=== PATIENT | male | born 1990 | race Caucasian/White ===

== ENCOUNTER 2020-10-05 07:19 | Outpatient (REF) | payer OTHER, SELFPAY | END 2020-10-05 07:20 | disposition home or self-care (01) | LOC: HO.LAB 07:19 | PROVIDERS: Visit Provider Internal Medicine | DX: Z20.828 Contact with and (suspected) exposure to other viral communicable diseases (principal) | CPT/HCPCS: C9803; U0003 ==

== ENCOUNTER 2020-10-07 07:10 | Outpatient (REF) | payer OTHER, SELFPAY | END 2020-10-07 07:11 | disposition home or self-care (01) | LOC: HO.LAB 07:10 | PROVIDERS: Visit Provider Internal Medicine | DX: Z20.828 Contact with and (suspected) exposure to other viral communicable diseases (principal) | CPT/HCPCS: C9803; U0003 ==

== ENCOUNTER 2020-11-16 10:09 | Outpatient (REF) | payer OTHER, SELFPAY | END 2020-11-16 10:10 | disposition home or self-care (01) | LOC: HO.LAB 10:09 | PROVIDERS: Visit Provider Internal Medicine | DX: Z20.822 Contact with and (suspected) exposure to COVID-19 (principal) | CPT/HCPCS: 36415; C9803; U0003; U0005 ==

== ENCOUNTER 2024-09-26 11:18 | Outpatient (AMB) | payer OTHER, SELFPAY ==
--- NOTE | 2024-09-26 11:53 | MHC.PC.OV ---
Vital Signs 09/26/24 11:58 Height 6 ft 2 in Weight 198 lb BMI 25.4 BP 126/94 H Blood Pressure Location Lt brachial Position Sitting Pulse 72 Pulse Source Pulse Oximeter Pulse Oximetry (%) 97 Oxygen Delivery Method Room Air Intake Visit Reasons: establish care- requesting pe Eye Surgeon Required: No Accompanied by: Self / Same As Patient Allergies No Known Allergies Allergy (Verified 09/26/24 12:05) Medication List - Last Reconciled 09/26/24 by Santo Lacey PA-C No Known Home Meds Tobacco use date assessed: 09/26/24 Dental Screening Dental Screen Date: 09/26/24 Did you have a dental visit in the last 12 months?: Yes Did you have a dental problem in the last 6 months where you did not have access to dental care?: No Was dental information given to patient?: Patient has dentist HPI establish care- requesting pe HPI Details Patient is a 34-year-old male here today for new patient annual physical. Patient has not seen a PCP in over 10 years. Noted elevated blood pressure does systolic reading today in office. He does have a family history of hypertension. He will try to start monitoring his blood pressure at home. Tobacco dependency: He does admit to smoking a half pack of cigarettes per day and does understand he needs to quit. VAccine : UTD with flu and COVID ( at [facility]). Considering tetanus vaccine [facility] Family History (Updated 09/26/24 @ 12:08 by Santo Lacey PA-C) Maternal Grandfather Pancreatic cancer Social History (Updated 09/26/24 @ 12:09 by Santo Lacey PA-C) Housing: House Alcohol intake: current Alcohol intake frequency: a few times a week Alcohol type: beer Patient Tobacco Use Status: Current everyday Tobacco user Cigarette Packs Per Day: 10 e-Cigarette/Vaping Use: Never Used service: No Current occupational status: employed Current occupation: [employer] - [employer] Cognitive needs: No Hearing needs: No Vision needs: No Questionnaire PHQ-9 Over the last 2 weeks, how often have you been bothered by any of the following problems? 1. Little interest or pleasure in doing things: not at all 2. Feeling down, depressed, or hopeless: not at all 3. Trouble falling or staying asleep, or sleeping too much: not at all 4. Feeling tired or having little energy: not at all 5. Poor appetite or overeating: not at all 6. Feeling bad about yourself - or that you are a failure or have let yourself or your family down: not at all 7. Trouble concentrating on things, such as reading the newspaper or watching television: not at all 8. Moving or speaking so slowly that other people could have noticed. Or the opposite - being so fidgety or restless that you have been moving around a lot more than usual: not at all 9. Thoughts that you would be better off or of hurting yourself in some way: not at all Total score: 0 Depression Screening Interpretation: Negative Depression Screening Done: Yes 63007 - PHQ-9 Billing: Yes Source: Developed by Drs. Didier Tam, Geeta Carbajal, Junior Da Silva and colleagues, with an educational russel from [employer]. Thrive Questionnaire Date Thrive assessed: 09/26/24 I am a: Patient What is your living situation today?: I have a steady place to live Within the past 12 months, did the food you bought not last and you didn't have the money to get more?: Never true Within the past 12 months, did you worry whether your food would run out before you got money to buy more?: Never true Do you have trouble paying for medicines?: No Do you have trouble getting transportation to medical appointments?: No Do you have trouble paying your heating and electricity bill?: No Do you have trouble taking care of your child, family member or friend?: No Do you have trouble with day-to-day activities such as bathing, preparing meals, shopping, managing finances, etc.?: No Are you currently unemployed and looking for a job?: No Are you interested in more education?: Yes Please select the resources that you would like help with: None Currently or been in a relationship where the following occur: No concerns reported THRIVE Score: 0 AUDIT C Alcohol Use Questionnaire (AUDIT-C) 1. How often do you have a drink containing alcohol?: 2-4 times a month 2. How many drinks containing alcohol do you have on a typical day when you are drinking?: 5 or 6 3. How often do you have six or more drinks on one occasion?: Monthly Total Score: 6 KAVYA-7 AMB Questionnaire KAVYA-7 Date KAVYA - 7 assessed: 09/26/24 Feeling nervous, anxious, or on edge: 0 = Not at all Not being able to stop or control worryin = Not at all Worrying too much about different things: 0 = Not at all Trouble relaxin = Not at all Being so restless that it is hard to sit still: 0 = Not at all Becoming easily annoyed or irritable: 0 = Not at all Feeling afraid as if something awful might happen: 0 = Not at all Total KAVYA-7 score (0-4 normal; 5-9 mild; 10-14 moderate; 15-21 severe): 0 Source: Developed by Drs. Didier Tam, Geeta Carbajal, Junior Da Silva and colleagues, with an educational russel from [employer]. KAVYA-7 Assessment Billing KAVYA-7 Assessment Tool: KAVYA-7 Assessment 16551 Review of Systems Const Denies body aches, Denies chills, Denies excessive sweating, Denies fatigue, Denies fever(s) and Denies headache(s) Eyes Denies blurry vision ENT Denies dysphagia, Denies vertigo, Denies dizziness, Denies headache(s), Denies hearing loss and Denies tinnitus Card Denies chest pain, Denies chest pain with activity, Denies syncope, Denies irregular heart rhythm and Denies dyspnea Resp Denies chest congestion, Denies cough, Denies hemoptysis, Denies dyspnea and Denies wheezing GI Denies abdominal pain, Denies melena, Denies hematochezia, Denies coffee ground emesis, Denies dysphagia, Denies diarrhea, Denies nausea and Denies vomiting Denies difficulty urinating, Denies dysuria, Denies urinary frequency, Denies urinary hesitancy and Denies urinary urgency Musc Denies arthralgias, Denies limited range of motion, Denies muscle cramps and Denies muscle weakness Skin/Breast Denies rash and Denies skin ulcer Neuro Denies Abnormal speech present, Denies confusion, Denies vertigo, Denies dizziness, Denies syncope, Denies headache(s), Denies memory loss and Denies seizure-like activity Psych Denies anxiety, Denies confusion, Denies depression, Denies memory loss, Denies panic attacks and Denies paranoia Endo Denies excessive sweating, Denies fatigue, Denies flushing, Denies polydipsia and Denies polyuria Carlos/Lymph Denies easy bleeding and Denies easy bruising Aller/Immun Denies wheezing Physical exam (Primary Care) Vital Signs: Last Vital Signs Pulse 72 09/26/24 11:58 BP 126/94 H 09/26/24 11:58 Pulse Ox 97 09/26/24 11:58 Oxygen Delivery Method Room Air 09/26/24 11:58 BMI result Body Mass Index 25.4 Tobacco/Smoking Status: Tobacco use Status Tobacco use date assessed 09/26/24 09/26/24 12:03 Patient Tobacco Use Status Current everyday Tobacco 09/26/24 12:09 e-Cigarette/Vaping Use Never Used 09/26/24 12:09 Are you ready to quit: No Tobacco cessation counseling provided: Yes Items discussed: Nicotine replacement Relapse Prevention: discussed the importance of a supportive environment, discussed negative mood or depression after quitting, weight gain after smoking is common and discussed dietary, exercise and/or lifestyle changes Number of minutes spent counselin CPT code: 39739 - 4-10 Minutes PHQ-9: PHQ-9 Score PHQ-9: Total score 0 09/26/24 12:11 Depression Screening Interpretation: Negative Thrive Assessment: Date of Thrive Assessment Date Thrive assessed 09/26/24 09/26/24 12:01 Currently or been in a relationship where the following occur: No concerns reported Const General: cooperative, comfortable, no acute distress, alert and awake; No confusion Nutritional Appearance: well nourished Orientation/consciousness: oriented to person, oriented to place, patient oriented x3 and No confusion HENMT Head: Yes normocephalic Ears: external ears normal and TM's normal bilaterally General nose exam: Normal nasal mucous membranes and turbinates present Face and sinus: No sinus tenderness Mouth: Normal oral and palatal mucosa present and tongue normal Teeth and gingiva: dentition normal and gingiva normal Throat: Yes posterior oropharynx normal, Yes tonsils normal and Yes uvula midline Eyes Conjunctivae: conjunctivae normal Sclerae: sclerae normal Pupils: Equal, round and reactive pupils present EOM: EOMs intact bilaterally Direct Ophthalmoscopy: No no photophobia Neck Neck: Yes no lymphadenopathy, No tender and Yes no JVD Thyroid: Thyroid normal Carotids: no bruits Chest Chest palpation & inspection: no tenderness Resp Effort & Inspection: normal respiratory effort, no audible wheezes, not labored and no stridor Auscultation: no crackles, no rales, no rhonchi and no wheezes Cardio Jugular venous distension: no JVD Rate: regular rate, not bradycardic and not tachycardic Rhythm: regular rhythm Heart sounds: no murmurs and normal S1 and S2 Bruits: no carotid bruits Peripheral pulses: Peripheral pulses 2+ throughout GI Inspection: Yes normal to inspection, No abdominal wall ecchymosis and No visible herniation Palpation (GI): Soft to palpation, nontender, no guarding, not rigid and No hepatosplenomegaly present Auscultation: normoactive bowel sounds General: Yes no CVA tenderness Back/Spine/Pelvis Back: no CVA tenderness and No back tenderness Cervical Spine: cervical ROM normal Thoracic/Lumbar Spine: thoracic and lumbar spine normal to inspection, straight leg raise negative bilaterally, No thoraco-lumbar ROM limited and No lumbar spinal tenderness Skin General skin exam: no rashes or lesions noted and dry skin Lesions: no lesions Rashes: no rashes Wounds: no wounds Neuro General: oriented to person, oriented to place, patient oriented x3, CN's II-XI intact bilaterally and No confusion Cranial nerves: Yes Equal, round and reactive pupils present and Yes Normal accommodation reflex present Cognition (Neuro): normal cognition Speech: No Abnormal speech present Gait exam (Neuro): Normal gait present Motor exam (neuro): 5/5 motor strength present throughout Extrem Right upper extremity: full ROM; no cyanosis Left upper extremity: full ROM; no cyanosis Right lower extremity: no edema Left lower extremity: no edema Psych Appearance: grossly normal Mental Status: mental status grossly normal Speech and movement: Normal speech and movement present Affect: normal affect Attitude: cooperative Thought process: Normal thought process present Office Procedures Flu Questionnaire Does the patient have a severe egg allergy?: No Immunizations Fluarix Triv [id number] (PF) 45 mcg (15 mcg x 3)/0.5 mL IM syringe Performing Provider: Santo Lacey PA-C [facility] Documented (not given) by: RAQUEL Alcazar on 09/26/24 12:02 Reason Not Given: Received Previously Coding Level of Care Code New Pt Prev Care 18-39yr(48271 Diagnoses Annual physical exam Z00.00 Tobacco dependence F17.200 Screening for diabetes mellitus (DM) Z13.1 Elevated blood pressure reading R03.0 Additional Codes KAVYA-7 Assessment Billing - KAVYA-7 Assessment Tool: KAVYA-7 Assessment 35160 ([id number]) PHQ-9 - 56179 - PHQ-9 Billing: Yes ([id number]) Vital Signs *Quality* - CPT code: 47895 - 4-10 Minutes ([id number]) Assessment & Plan Assessment & Plan (1) Annual physical exam: Code(s): Z00.00 - Encounter for general adult medical examination without abnormal findings Category: Medical Plan: As per HPI (2) Tobacco dependence: Code(s): F17.200 - Nicotine dependence, unspecified, uncomplicated Category: Medical Plan: As per HPI. Edward does understand he needs to quit smoking though is not willing to do so at this time. (3) Screening for diabetes mellitus (DM): Code(s): Z13.1 - Encounter for screening for diabetes mellitus Category: Medical Plan: As per HPI (4) Elevated blood pressure reading: Code(s): R03.0 - Elevated blood-pressure reading, without diagnosis of hypertension Category: Medical Plan: Noted elevated blood pressure readings today in office. Advised to monitor blood pressure at home with goal blood pressure to be below 140/90 consistently. Of note does have a family history of high blood pressure Orders: Orders Influenza [id number] Immunization 09/26/24 Z23 - Encounter for immunization Comprehensive [address]. Panel Fast 09/26/24 Z13.1 - Encounter for screening for diabetes mellitus Complete Blood Count no Diff 09/26/24 Z13.1 - Encounter for screening for diabetes mellitus
[2024-09-26 11:58] VITALS: BP 126/94; PULSE 72; O2SAT 97; BMI 25.4
== END 2024-09-26 12:18 | disposition home or self-care (01) ==
PROVIDERS: PCP Physician Assistant; Visit Provider Physician Assistant
DX: Z23 Encounter for immunization (principal)

== ENCOUNTER → 2024-09-26 11:18 | Outpatient (BNVA) | payer OTHER, SELFPAY | PROVIDERS: PCP Physician Assistant; Visit Provider Physician Assistant | DX: Z00.00 Encounter for general adult medical examination without abnormal findings (principal); R03.0 Elevated blood-pressure reading, without diagnosis of hypertension; F17.210 Nicotine dependence, cigarettes, uncomplicated | CPT/HCPCS: 90471; 96127 ==

== ENCOUNTER 2024-10-18 07:17 | Outpatient (REF) | payer OTHER, SELFPAY ==
[2024-10-18 08:07] LABS: Hematocrit 41.3 % (42.0-52.0); Hemoglobin 13.9 g/dl (14.0-18.0); Mean Corpuscular HGB Conc 33.7 g/dl (31.0-36.0); Mean Corpuscular Hemoglobin 31.2 pg (27.0-33.0); Mean Corpuscular Volume 92.8 fL (80.0-98.0); Mean Platelet Volume 10.6 fL (9.4-12.4); Platelet Count 236 X10*3/uL (160-400); Red Blood Count 4.45 X10*6/uL (4.60-5.80); Red Cell Distribution Width 13.2 % (11.0-16.0); White Blood Count 9.5 X10*3/uL (4.8-10.8)
[2024-10-18 08:54] LABS: Alanine Aminotransferase 65 U/L (0-40); Albumin Level 4.5 g/dL (3.5-5.0); Alkaline Phosphatase 82 U/L (39-117); Anion Gap 13 (12-20); Aspartate Amino Transferase 26 U/L (5-37); Bilirubin Total 0.3 mg/dL (0.0-1.0); Blood Urea Nitrogen 12 mg/dL (9-16); Calcium 8.7 mg/dL (8.4-10.2); Carbon Dioxide 24 mmol/L (22-29); Chloride 109 mmol/L (96-108); Estimated Glomerular Filt Rate > 60; Glucose Fasting 98 mg/dL (60-99); Potassium 4.2 mmol/L (3.3-5.1); Sodium 142 mmol/L (135-145); Total Protein 6.9 g/dL (6.5-8.0)
== END 2024-10-18 07:18 | disposition home or self-care (01) ==
LOC: HO.LAB 07:17
PROVIDERS: PCP Physician Assistant; Visit Provider Physician Assistant
DX: Z13.1 Encounter for screening for diabetes mellitus (principal)
CPT/HCPCS: 36415; 80053; 85027

== ENCOUNTER 2025-01-08 10:09 | Outpatient (AMB) | payer OTHER, SELFPAY ==
[2025-01-08 10:34] VITALS: BP 130/84; PULSE 67; TEMP 36.3; O2SAT 99; BMI 25.4
--- NOTE | 2025-01-08 10:34 | MHC.PC.OV ---
Vital Signs 01/08/25 10:34 Height 6 ft 2 in Weight 198 lb BMI 25.4 BP 130/84 Blood Pressure Location Lt brachial Position Sitting Pulse 67 Pulse Source Pulse Oximeter Temp 97.3 F Temp Source Temporal Artery Scan Pulse Oximetry (%) 99 Oxygen Delivery Method Room Air Intake Visit Reasons: Knee Pain Brim Shaper Required: No Accompanied by: Self / Same As Patient Allergies No Known Allergies Allergy (Verified 01/08/25 10:44) Medication List - Last Reconciled 01/08/25 by Santo Lacey PA-C No Known Home Meds Tobacco use date assessed: 09/26/24 Dental Screening Dental Screen Date: 09/26/24 HPI Knee Pain HPI Details The patient is a 34-year-old male presenting with left knee pain. He reported the onset of pain during a race he participated in, which occurred on the Monday preceding the visit. He described the pain as localized to the medial aspect of the left knee, with accompanying soft tissue swelling. The patient attempted conservative management with icing, compression, and elevation, as well as the use of NSAIDs like Aleve and ibuprofen, but continued to experience discomfort and noticed moderate swelling. He observed pain upon stretching the knee and has been performing significant walking at work, which could have exacerbated the condition. [facility] Family History Maternal Grandfather Pancreatic cancer Social History Housing: House Alcohol intake: current Alcohol intake frequency: a few times a week Alcohol type: beer Patient Tobacco Use Status: Current everyday Tobacco user Cigarette Packs Per Day: 10 e-Cigarette/Vaping Use: Never Used service: No Current occupational status: employed Current occupation: [employer] - [employer] Cognitive needs: No Hearing needs: No Vision needs: No Questionnaire PHQ-9 Over the last 2 weeks, how often have you been bothered by any of the following problems? 1. Little interest or pleasure in doing things: not at all 2. Feeling down, depressed, or hopeless: not at all 3. Trouble falling or staying asleep, or sleeping too much: not at all 4. Feeling tired or having little energy: not at all 5. Poor appetite or overeating: not at all 6. Feeling bad about yourself - or that you are a failure or have let yourself or your family down: not at all 7. Trouble concentrating on things, such as reading the newspaper or watching television: not at all 8. Moving or speaking so slowly that other people could have noticed. Or the opposite - being so fidgety or restless that you have been moving around a lot more than usual: not at all 9. Thoughts that you would be better off or of hurting yourself in some way: not at all Total score: 0 Depression Screening Interpretation: Negative Depression Screening Done: Yes 41991 - PHQ-9 Billing: Yes Source: Developed by Drs. Didier Tam, Geeta Carbajal, Junior Da Silva and colleagues, with an educational russel from [employer]. Thrive Questionnaire Date Thrive assessed: 01/08/25 I am a: Patient What is your living situation today?: I have a steady place to live Within the past 12 months, did the food you bought not last and you didn't have the money to get more?: Never true Within the past 12 months, did you worry whether your food would run out before you got money to buy more?: Never true Do you have trouble paying for medicines?: No Do you have trouble getting transportation to medical appointments?: No Do you have trouble paying your heating and electricity bill?: No Do you have trouble taking care of your child, family member or friend?: No Do you have trouble with day-to-day activities such as bathing, preparing meals, shopping, managing finances, etc.?: No Are you currently unemployed and looking for a job?: No Are you interested in more education?: Yes Please select the resources that you would like help with: None Currently or been in a relationship where the following occur: No concerns reported THRIVE Score: 0 AUDIT C Alcohol Use Questionnaire (AUDIT-C) 1. How often do you have a drink containing alcohol?: 2-4 times a month 2. How many drinks containing alcohol do you have on a typical day when you are drinking?: 5 or 6 3. How often do you have six or more drinks on one occasion?: Monthly Total Score: 6 KAVYA-7 AMB Questionnaire KAVYA-7 Date KAVYA - 7 assessed: 01/08/25 Feeling nervous, anxious, or on edge: 0 = Not at all Not being able to stop or control worryin = Not at all Worrying too much about different things: 0 = Not at all Trouble relaxin = Not at all Being so restless that it is hard to sit still: 0 = Not at all Becoming easily annoyed or irritable: 0 = Not at all Feeling afraid as if something awful might happen: 0 = Not at all Total KAVYA-7 score (0-4 normal; 5-9 mild; 10-14 moderate; 15-21 severe): 0 Source: Developed by Drs. Didier Tam, Geeta Carbajal, Junior Da Silva and colleagues, with an educational russel from [employer]. KAVYA-7 Assessment Billing KAVYA-7 Assessment Tool: KAVYA-7 Assessment 40212 Review of Systems Const Denies headache(s) Eyes Denies loss of vision ENT Denies vertigo, Denies dizziness, Denies headache(s) and Denies sore throat Card Denies chest pain, Denies leg edema and Denies lightheadedness Resp Denies cough, Denies hemoptysis and Denies wheezing GI Denies abdominal pain, Denies melena, Denies constipation, Denies diarrhea and Denies vomiting Denies dysuria, Denies urinary frequency and Denies urinary urgency Musc Denies arthralgias, Denies joint swelling, Denies numbness and Denies tingling Neuro Denies Abnormal speech present, Denies behavioral changes, Denies vertigo, Denies dizziness, Denies headache(s), Denies loss of vision, Denies memory loss, Denies numbness and Denies tingling Psych Denies anxiety, Denies behavioral changes, Denies depression, Denies memory loss and Denies panic attacks Carlos/Lymph Denies easy bleeding and Denies easy bruising Aller/Immun Denies wheezing Physical exam (Primary Care) Vital Signs: Last Vital Signs Temp 97.3 F 01/08/25 10:34 Pulse 67 01/08/25 10:34 BP 130/84 01/08/25 10:34 Pulse Ox 99 01/08/25 10:34 Oxygen Delivery Method Room Air 01/08/25 10:34 BMI result Body Mass Index 25.4 Tobacco/Smoking Status: Tobacco use Status Tobacco use date assessed 09/26/24 01/08/25 10:35 Patient Tobacco Use Status Current everyday Tobacco 01/08/25 10:35 e-Cigarette/Vaping Use Never Used 01/08/25 10:35 PHQ-9: PHQ-9 Score PHQ-9: Total score 0 01/08/25 10:35 Depression Screening Interpretation: Negative Thrive Assessment: Date of Thrive Assessment Date Thrive assessed 01/08/25 01/08/25 10:35 Currently or been in a relationship where the following occur: No concerns reported Const General: healthy appearing, no acute distress, alert and awake Nutritional Appearance: well nourished Orientation/consciousness: oriented to person, oriented to place and oriented to time HENMT Ears: TM's normal bilaterally General nose exam: Normal nasal mucous membranes and turbinates present Eyes Conjunctivae: conjunctivae normal Sclerae: sclerae normal Pupils: Equal, round and reactive pupils present Neck Neck: Yes no lymphadenopathy and Yes no JVD Thyroid: Thyroid normal Carotids: no bruits Resp Effort & Inspection: normal respiratory effort and not tachypneic Auscultation: no crackles, no rales, no rhonchi and no wheezes Cardio Rate: regular rate Rhythm: regular rhythm Heart sounds: no murmurs and normal S1 and S2 GI Palpation (GI): Soft to palpation, nontender, no hepatomegaly and no splenomegaly Auscultation: normal bowel sounds Skin General skin exam: no rashes or lesions noted and dry skin Neuro General: oriented to person, oriented to place and oriented to time Cranial nerves: Yes Equal, round and reactive pupils present Speech: No Abnormal speech present Gait exam (Neuro): Normal gait present Motor exam (neuro): no tremor noted Extrem Other: LEFT KNEE: FULL RANGE OF MOTION, NO LIGAMENTOUS LAXITY, NOTABLE EDEMA TO THE MEDIAL SIDE OF LEFT KNEE COMPARED TO RIGHT KNEE. Right upper extremity: full ROM Left upper extremity: full ROM Right lower extremity: full ROM; no edema Left lower extremity: full ROM; no edema Psych Mental Status: mental status grossly normal Speech and movement: Normal speech and movement present Affect: normal affect Attitude: cooperative Thought process: Normal thought process present Coding Level of Care Code Est Pt Level 3 (41392) Diagnoses Sprain of medial collateral ligament of left knee, initial encounter S83.412A Encounter type: initial encounter Additional Codes KAVYA-7 Assessment Billing - KAVYA-7 Assessment Tool: KAVYA-7 Assessment 20874 ([id number]) PHQ-9 - 68474 - PHQ-9 Billing: Yes ([id number]) Assessment & Plan Assessment & Plan (1) MCL sprain of left knee: Code(s): S83.412A - Sprain of medial collateral ligament of left knee, initial encounter Category: Medical Qualifiers: Encounter type: initial encounter Qualified Code(s): S83.412A - Sprain of medial collateral ligament of left knee, initial encounter Plan: The patient is advised to undergo an x-ray to rule out bone-related injuries, while understanding it may not fully capture soft tissue damage. Conservative treatment involves rest, ice, compression, and elevation, ongoing NSAIDs for pain and inflammation, and recommending limited active use of the knee, including potential time off work. Physical therapy suggested if no symptom improvement occurs. Orders: Orders XR knee LT 3V Today S83.412A - Sprain of medial collateral ligament of left knee, initial encounter
== END 2025-01-08 10:50 | disposition home or self-care (01) ==
LOC: HO.HMCH 10:09
PROVIDERS: PCP Physician Assistant; Visit Provider Physician Assistant
DX: S83.412A Sprain of medial collateral ligament of left knee, initial encounter (principal)

== ENCOUNTER → 2025-01-08 10:09 | Outpatient (BNVA) | payer OTHER, SELFPAY | PROVIDERS: PCP Physician Assistant; Visit Provider Physician Assistant | DX: S83.412A Sprain of medial collateral ligament of left knee, initial encounter (principal); X58.XXXA Exposure to other specified factors, initial encounter; Y93.9 Activity, unspecified; Y92.9 Unspecified place or not applicable; Y99.9 Unspecified external cause status | CPT/HCPCS: 96127 ==

== ENCOUNTER 2025-01-09 08:05 | Outpatient (REF) | payer OTHER, SELFPAY ==
--- NOTE | ~2025-01-09 | XR_ITS ---
EXAMINATION: XR KNEE 4 OR MORE VIEWS LEFT HISTORY: S83.412A - Sprain of medial collateral ligament of left knee COMPARISON: There are no prior studies available for comparison. FINDINGS: Four views of the left knee are submitted. Osseous mineralization is normal. There is no fracture or dislocation. The joint spaces are preserved. The soft tissues are unremarkable. There is no joint effusion. XR/XR knee LT 4V IMPRESSION: Unremarkable examination of the left knee. Electronically signed by: Didier Lockett MD 01/09/2025 08:31 AM EDT
--- OUTSIDE RECORDS SUMMARY | 2025-01-09 08:14 | XMS_ITS | Encounter Summary ---
Author Organization [facility] Address [address] [place] [address] Phone Care Team Providers Care Distribution Lead Name Role Phone Didier Herrera Primary Care Provider [phone] Encounter Details Date Type Department Care Team (Late st Contact Info) Description 06/01/2017 Conversion Encounter [facility] [address] [place] [address] Social History Tobacco Use Types Packs/Day Years Used Date Smoking Tobacco: Never Assessed Sex and Gender Information Value Date Recorded Sex Assigned at Not on file Legal Sex Male 4:29 PM EDT Gender Identity Not on file Sexual Orientation Not on file documented as of this encounter Plan of Treatment Not on file documented as of this encounter Visit Diagnoses Not on filedocumented in this encounter Care Teams Distribution Lead Relationship Specialty Start Date End Date Didier Herrera [address] [place] [address] PCP - General 05/26/17 documented as of this encounter
--- OUTSIDE RECORDS SUMMARY | 2025-01-09 08:14 | XMS_ITS | Clinical Summary ---
Author Organization [facility] Address [address] [place] [address] Phone Care Team Providers Care Public Records Researcher Name Role Phone HerreraDidier cleaning Primary Care Provider Immunizations Immunization Administration Dates Next Due DTP 09/30/1993, 3,1992,06/12 DTaP 5 04/15/1997 H1N1 01/07/2010 Hep B, ped/adol 02/08/1994,1992,1992 Hib (PRP-T) 06/15/1993, 3,1992,06/12 Influenza, injectable, trivalent 09/24/2008 MMR 04/15/1997,06/15/1993 Meningococcal Conj (Menactra) MCV4P 05/25/2006 OPV 04/15/1997, 3,1992,06/12 Td (adult) (MBL), 2 Lf tetan us toxoid, PF, adsorbed 03/01/2004 Tdap 09/24/2008 Family History Relation Name Status Comments Father Alive Father: Alive a nd well Mother Alive Mother: Alive a nd well Other No family histo ry of Obesity, No family history of Developmental dislocation of hip, No family history of Deafness, No family history of Migraines, No family history of Diabetes mellitus, No family history of Strabismus/amblyopia, No family history of ADD/ADHD, No family history of Elevated cholesterol, No family history of Seizure disorder, No family history of Asthma, No family history of Sudden /[place] under age 55, No family history of Autism Sister 1 Alive Sister: Alive a nd well, Alive and well Sister 2 Alive Sister: Alive a nd well, Alive and well Social History Tobacco Use Types Packs/Day Years Used Date Smoking Tobacco: Never Assessed Sex and Gender Information Value Date Recorded Sex Assigned at Not on file Legal Sex Male 4:29 PM EDT Gender Identity Not on file Sexual Orientation Not on file Last Filed Vital Signs Vital Sign Reading Time Taken Comments Blood Pressure 120/72 01/07/2010 12:00 AM EDT Pulse - - Temperature - - Respiratory Rate - - Oxygen Saturation - - Inhaled Oxygen Concentration - - Weight 62.6 kg (138 lb) 01/07/2010 12:00 AM EDT Height 181.6 cm (5' 11.5 ) 01/07/2010 12:00 AM E DT Body Mass Index 18.98 01/07/2010 12:00 AM EDT Plan of Treatment Health Maintenance Due Date Last Done Comments Varicella Vaccines (1 of 2 - 13+ 2-dose series) 2005 DTaP,Tdap,and Td Vaccines (7 - Td or Tdap) 09/24/2018 09/24/2008, 03/01/2004, 04/15/1997, Additional history exists Influenza Vaccines (#1) 2024 09/24/2008 COVID-19 Vaccine ( season) 2024 HIB Vaccines Completed 06/15/1993, 11/16, 1992, Additional history exists Hepatitis B Vaccines Completed 02/08/1994, 1992, 1992 IPV Vaccines Completed 04/15/1997, 09/15, 1992, Additional history exists MMR Vaccines Completed 04/15/1997, 06/15/1993 Meningococcal Vaccine Aged Out 05/25/2006 No arturo aida eligible based on patient's age to complete this topic HPV Vaccines Aged Out No longer eligi ble based on patient's age to complete this topic Hepatitis A Vaccines Aged Out No long er eligible based on patient's age to complete this topic Men B Vaccine Aged Out No longer elig ible based on patient's age to complete this topic Pneumococcal Vaccine Aged Out No long er eligible based on patient's age to complete this topic Care Teams Public Records Researcher Relationship Specialty Start Date End Date Didier Herrera [address] [place] [address] PCP - General 05/26/17
--- OUTSIDE RECORDS SUMMARY | 2025-01-09 08:14 | XMS_ITS | Clinical Summary ---
Author Organization [facility] Address [address] [place] [address] Care Team Providers Care Executive Compensation Analyst Name Role Phone Unavailable Primary Care Provider Unavailabl e Social History Tobacco Use Types Packs/Day Years Used Date Smoking Tobacco: Never Assessed Intimate Partner Violence Answer Date R ecorded Fear of Current or Ex-Partner Not on file Emotionally Abused Not on file 06/08/2023 Physically Abused Not on file 06/08/2023 Sexually Abused Not on file 06/08/2023 Feel Safe at Home Not on file 06/08/2023 Sex and Gender Information Value Date Recorded Sex Assigned at Not on file Legal Sex Male 9:56 AM EST Gender Identity Not on file Sexual Orientation Not on file Plan of Treatment Health Maintenance Due Date Last Done Comments Hepatitis C Screening 1992 DTaP/Tdap/Td (1 - Tdap) 2010 Hep B (1 of 3 - 19+ 3-dose series) 2011 COVID-19 Vaccine ( - 2023-2 5 season) 2024 Influenza (#1) 2024 09/24/2008 Zoster (Shingrix) (1 of 2) 2042 HPV Vaccine Aged Out No longer eligi ble based on patient's age to complete this topic Hep A Aged Out No longer eligi ble based on patient's age to complete this topic Hib Aged Out No longer eligi ble based on patient's age to complete this topic Meningococcal ACWY Aged Out No longer eligible based on patient's age to complete this topic Pneumococcal Aged Out No longer eligi ble based on patient's age to complete this topic
== END 2025-01-09 08:06 | disposition home or self-care (01) ==
LOC: HO.XRAY 08:05
PROVIDERS: PCP Physician Assistant; Visit Provider Physician Assistant
DX: S83.412A Sprain of medial collateral ligament of left knee, initial encounter (principal)
CPT/HCPCS: 73564

== ENCOUNTER → 2025-01-09 08:09 | Outpatient (BNV) | payer OTHER, SELFPAY | PROVIDERS: PCP Physician Assistant; Visit Provider Radiology Diagnostic Radiology | DX: S83.412A Sprain of medial collateral ligament of left knee, initial encounter (principal) | CPT/HCPCS: 73564 ==

== ENCOUNTER 2025-01-28 07:43 | Outpatient (REF) | payer OTHER, SELFPAY ==
--- NOTE | ~2025-01-28 | MR_ITS ---
CLINICAL HISTORY: S83.207A - Unspecified tear of unspecified meniscus, current injury, lef... MR left knee without contrast Comparison: CR/SR - XR KNEE LT 4V - 01/09/25 08:23 EDT Findings: The medial and lateral menisci are intact. The anterior and posterior cruciate ligaments are intact. There is thickening and increased signal in the anterior cruciate ligament. The medial and lateral collateral ligaments are intact without periligamentous edema. No edema in the posterior lateral corner. The extensor mechanism is intact. No joint effusion. No Rosales's cyst. There is a low signal fracture line in the proximal tibial metaphysis at the medial/posterior aspect with a large amount of associated bone marrow edema. No hyaline cartilage disease in the patellofemoral, medial and lateral compartments. Impression: Normal menisci. No cruciate or collateral ligament tears. Fracture line in the proximal tibial metaphysis of the medial/posterior aspect with a large amount of associated edema could be stress fracture or secondary to prior trauma. This document has been electronically signed by: Autumn Mcclelland MD on 01/29/2025 15:59:35
--- OUTSIDE RECORDS SUMMARY | 2025-01-28 07:47 | XMS_ITS | Encounter Summary ---
Author Organization [facility] Address [address] [place] [address] Phone Care Team Providers Care Art Specialist Name Role Phone Didier Herrera Primary Care Provider [phone] Encounter Details Date Type Department Care Team (Late st Contact Info) Description 06/01/2017 Conversion Encounter [facility] [address] [place] [address] Social History Tobacco Use Types Packs/Day Years [...] on filedocumented in this encounter Care Teams Art Specialist Relationship Specialty Start Date End Date Didier Herrera [address] [place] [address] PCP - General 05/26/17 documented as of this encounter
--- OUTSIDE RECORDS SUMMARY | 2025-01-28 07:47 | XMS_ITS | Clinical Summary ---
Author Organization [facility] Address [address] [place] [address] Care Team Providers Care Steel Crane Operator Name Role Phone Unavailable Primary Care Provider [...]
--- OUTSIDE RECORDS SUMMARY | 2025-01-28 07:47 | XMS_ITS | Clinical Summary ---
Author Organization [facility] Address [address] [place] [address] Phone Care Team Providers Care Architectural Modeler Name Role Phone HerreraDidier cleaning Primary Care Provider [phone] Immunizations Immunization Administration Dates Next Due DTP [...] of Asthma, No family history of Sudden /[place] under age 55, No family history of [...] age to complete this topic Care Teams Architectural Modeler Relationship Specialty Start Date End Date Didier Herrera [address] [place] [address] PCP - General 05/26/17
== END 2025-01-28 07:44 | disposition home or self-care (01) ==
LOC: HO.MRI 07:43
PROVIDERS: PCP Physician Assistant; Visit Provider Physician Assistant
DX: S83.207A Unspecified tear of unspecified meniscus, current injury, left knee, initial encounter (principal)
CPT/HCPCS: 73721

== ENCOUNTER → 2025-01-28 07:51 | Outpatient (BNV) | payer OTHER, SELFPAY | PROVIDERS: PCP Physician Assistant; Visit Provider Radiology Diagnostic Radiology | DX: S83.207A Unspecified tear of unspecified meniscus, current injury, left knee, initial encounter (principal) | CPT/HCPCS: 73721 ==

== ENCOUNTER 2025-02-20 10:24 | Outpatient (AMB) | payer OTHER, SELFPAY ==
--- NOTE | 2025-02-20 10:26 | MHC.OFFVIS ---
Vital Signs 02/20/25 10:31 Height 6 ft 1 in Weight 198 lb BMI 26.1 Intake Visit Reasons: FC - left poss. ACL tear/tibial fx, DOI 01/04/25 Intake Note: Edward is a 34 year old male who presents today for evaluation of his left knee injury, DOI 01/04/25. Patient reports that he participated in a race when he felt a sharp pain on the medial aspect of the knee with swelling. The patient tried icing, compression, and elevation, as well as the use of NSAIDs like Aleve and ibuprofen, but continued to experience discomfort and noticed more swelling. He noticed his pain more with stretching the knee and has been performing significant walking at work, which could have made his pain worse. Today he is feel better with his brace on and without his brace his knee feels weak. Patient informed me that his pain is worse when he is going down stairs. IMPRESSION (x-ray): Unremarkable examination of the left knee. Impression (MRI): Normal menisci. No cruciate or collateral ligament tears. Fracture line in the proximal tibial metaphysis of the medial/posterior aspect with a large amount of associated edema could be stress fracture or secondary to prior trauma. Allergies No Known Allergies Allergy (Verified 02/20/25 10:30) HPI HPI FC - left poss. ACL tear/tibial fx, DOI 01/04/25: Details: Mr. Castañeda is a 34-year-old male who presents to the office today for evaluation of left knee injury that he sustained on 01/04/2025. He reports that he was running in a race over 6 miles when he began to have left knee pain. Over the following few days his knee pain increased. He saw his primary care provider which gave him 2 weeks out of work. 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 He continued to have pain and therefore an MRI was ordered. He does have a knee brace that he wears to help for support. This does help him some. His pain is at its peak when he is going down stairs. Since the date of injury his pain has subsided some. [facility] Family History Maternal Grandfather Pancreatic cancer Social History (Updated 02/20/25 @ 10:30 by Jamal De La Vega Housing: House Alcohol intake: current Alcohol intake frequency: a few times a week Alcohol type: beer Patient Tobacco Use Status: Current everyday Tobacco user Cigarettes Per Day: 10 e-Cigarette/Vaping Use: Never Used service: No Current occupational status: employed Current occupation: [employer] Cognitive needs: No Hearing needs: No Vision needs: No Review of Systems Const All systems reviewed & are unremarkable except as noted in HPI and below Physical Exam Vital Signs: BMI result Body Mass Index 26.1 Const General: cooperative, healthy appearing and no acute distress Resp Effort & Inspection: normal respiratory effort and able to speak in complete sentences Extrem Other: Left knee normal to inspection no ecchymosis, erythema or joint effusion. Slight tenderness to palpation over the proximal tibia. Able to perform straight leg raise with quad weakness. No tenderness to palpation medial or lateral joint lines. NVI. Assessment & Plan Assessment & Plan (1) Stress fracture, left tibia, initial encounter for fracture: Code(s): M84.362A - Stress fracture, left tibia, initial encounter for fracture Category: Medical Plan Mr. Castañeda is a 34-year-old male who presents to the office today for evaluation of left knee injury that he sustained on 01/04/2025. He reports that he was running in a race over 6 miles when he began to have left knee pain. Over the following few days his knee pain increased. He saw his primary care provider which gave him 2 weeks out of work. 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 He continued to have pain and therefore an MRI was ordered. He does have a knee brace that he wears to help for support. This does help him some. His pain is at its peak when he is going down stairs. Since the date of injury his pain has subsided some. While the office today, we discussed physical therapy. The patient is going to attend his 1st physical therapy appointment tomorrow. He should focus on quad strengthening. Would limit any high impact activities at this time. Gentle ambulation is recommended. He will use pain as his guide. If he continues to have an increase in pain he will contact our office and should immediately stop weight-bearing. I advised him against participating in any running or sports activities until he is pain-free. I gave him an out-of-work note until his follow up appointment in 4-6 weeks, sooner if needed. X-rays of the right knee which were obtained on 01/09/2025: XR/XR knee LT 4V IMPRESSION: Unremarkable examination of the left knee. MRI of the right knee obtained on 01/29/2025: Impression: Normal menisci. No cruciate or collateral ligament tears. Fracture line in the proximal tibial metaphysis of the medial/posterior aspect with a large amount of associated edema could be stress fracture or secondary to prior trauma. Coding Level of Care Code New Pt Level 4 (13301) Diagnoses Stress fracture, left tibia, initial encounter for fracture M84.362A
[2025-02-20 10:31] VITALS: BMI 26.1
--- OUTSIDE RECORDS SUMMARY | 2025-02-20 11:39 | XMS_ITS | Clinical Summary ---
Author Organization [facility] Address [address] [place] [address] Phone Care Team Providers Care Ceramic Engineering Professor Name Role Phone HerreraDidier cleaning Primary Care Provider [phone] Immunizations Immunization Administration Dates Next Due DTP [...] of Asthma, No family history of Sudden /[place] under age 55, No family history of [...] age to complete this topic Care Teams Ceramic Engineering Professor Relationship Specialty Start Date End Date Didier Herrera [address] [place] [address] PCP - General 05/26/17
--- OUTSIDE RECORDS SUMMARY | 2025-02-20 11:39 | XMS_ITS | Encounter Summary ---
Author Organization [facility] Address [address] [place] [address] Phone Care Team Providers Care Hostess Host Name Role Phone Didier Herrera Primary Care Provider [phone] Encounter Details Date Type Department Care Team (Late st Contact Info) Description 06/01/2017 Conversion Encounter [facility] [place] [address] [place] [address] Social History Tobacco Use Types Packs/Day Years [...] on filedocumented in this encounter Care Teams Hostess Host Relationship Specialty Start Date End Date Didier Herrera [address] [place] [address] PCP - General 05/26/17 documented as of this encounter
== END 2025-02-20 10:55 | disposition home or self-care (01) ==
LOC: HO.HOS 10:25
PROVIDERS: PCP Physician Assistant; Visit Provider Physician Assistant
DX: M84.362A Stress fracture, left tibia, initial encounter for fracture (principal)
CPT/HCPCS: 99203

== ENCOUNTER 2025-03-06 11:21 | Outpatient (AMB) | payer OTHER, SELFPAY ==
--- NOTE | 2025-03-06 11:42 | MHC.PC.OV ---
Vital Signs 03/06/25 11:43 Height 6 ft 1 in Weight 206 lb 4 oz BMI 27.2 BP 128/88 Blood Pressure Location Lt brachial Position Sitting Pulse 74 Pulse Source Pulse Oximeter Temp 97.3 F Temp Source Temporal Artery Scan Pulse Oximetry (%) 97 Oxygen Delivery Method Room Air Intake Visit Reasons: follow up 5 months Lamp Inspector Required: No Accompanied by: Self / Same As Patient Allergies No Known Allergies Allergy (Verified 03/06/25 12:06) Medication List - Last Reconciled 03/06/25 by Santo Lacey PA-C No Known Home Meds Tobacco use date assessed: 09/26/24 Dental Screening Dental Screen Date: 09/26/24 HPI follow up 5 months HPI Details Patient is a 35-year-old male here today for a follow-up visit Recently suffered a stress fracture of his left tibia and ACL tear secondary to running a 10K race. Has followed up with Orthopedics whom recommended physical therapy. Tobacco dependency: He does admit to smoking a half pack of cigarettes per day and does understand he needs to quit. Elevated liver enzymes-had an elevated ALT on most recent labs. was to repeat liver enzyme testing in promises to do so when near future. [facility] Family History Maternal Grandfather Pancreatic cancer Social History Housing: House Alcohol intake: current Alcohol intake frequency: a few times a week Alcohol type: beer Patient Tobacco Use Status: Current everyday Tobacco user Cigarettes Per Day: 10 e-Cigarette/Vaping Use: Never Used service: No Current occupational status: employed Current occupation: [employer] - [employer] Cognitive needs: No Hearing needs: No Vision needs: No Questionnaire PHQ-9 Over the last 2 weeks, how often have you been bothered by any of the following problems? 1. Little interest or pleasure in doing things: not at all 2. Feeling down, depressed, or hopeless: not at all 3. Trouble falling or staying asleep, or sleeping too much: not at all 4. Feeling tired or having little energy: not at all 5. Poor appetite or overeating: not at all 6. Feeling bad about yourself - or that you are a failure or have let yourself or your family down: not at all 7. Trouble concentrating on things, such as reading the newspaper or watching television: not at all 8. Moving or speaking so slowly that other people could have noticed. Or the opposite - being so fidgety or restless that you have been moving around a lot more than usual: not at all 9. Thoughts that you would be better off or of hurting yourself in some way: not at all Total score: 0 Depression Screening Interpretation: Negative Depression Screening Done: Yes 50692 - PHQ-9 Billing: Yes Source: Developed by Drs. Didier Tam, Geeta Carbajal, Junior Da Silva and colleagues, with an educational russel from [employer]. Thrive Questionnaire Date Thrive assessed: 01/08/25 I am a: Patient What is your living situation today?: I have a steady place to live Within the past 12 months, did the food you bought not last and you didn't have the money to get more?: Never true Within the past 12 months, did you worry whether your food would run out before you got money to buy more?: Never true Do you have trouble paying for medicines?: No Do you have trouble getting transportation to medical appointments?: No Do you have trouble paying your heating and electricity bill?: No Do you have trouble taking care of your child, family member or friend?: No Do you have trouble with day-to-day activities such as bathing, preparing meals, shopping, managing finances, etc.?: No Are you currently unemployed and looking for a job?: No Are you interested in more education?: Yes Please select the resources that you would like help with: None Currently or been in a relationship where the following occur: No concerns reported THRIVE Score: 0 AUDIT C Alcohol Use Questionnaire (AUDIT-C) 1. How often do you have a drink containing alcohol?: 2-4 times a month Total Score: 2 KAVYA-7 AMB Questionnaire KAVYA-7 Date KAVYA - 7 assessed: 01/08/25 Feeling nervous, anxious, or on edge: 1 = Several days Not being able to stop or control worryin = Not at all Worrying too much about different things: 0 = Not at all Trouble relaxin = Not at all Being so restless that it is hard to sit still: 0 = Not at all Becoming easily annoyed or irritable: 1 = Several days Feeling afraid as if something awful might happen: 0 = Not at all Total KAVYA-7 score (0-4 normal; 5-9 mild; 10-14 moderate; 15-21 severe): 2 Source: Developed by Drs. Didier Tam, Geeta Carbajal, Junior Da Silva and colleagues, with an educational russel from [employer]. Review of Systems Const Denies headache(s) Eyes Denies loss of vision ENT Denies vertigo, Denies dizziness, Denies headache(s) and Denies sore throat Card Denies chest pain, Denies leg edema and Denies lightheadedness Resp Denies cough, Denies hemoptysis and Denies wheezing GI Denies abdominal pain, Denies melena, Denies constipation, Denies diarrhea and Denies vomiting Denies dysuria, Denies urinary frequency and Denies urinary urgency Musc Denies arthralgias, Denies joint swelling, Denies numbness and Denies tingling Neuro Denies Abnormal speech present, Denies behavioral changes, Denies vertigo, Denies dizziness, Denies headache(s), Denies loss of vision, Denies memory loss, Denies numbness and Denies tingling Psych Denies anxiety, Denies behavioral changes, Denies depression, Denies memory loss and Denies panic attacks Carlos/Lymph Denies easy bleeding and Denies easy bruising Aller/Immun Denies wheezing Physical exam (Primary Care) Vital Signs: Last Vital Signs Temp 97.3 F 03/06/25 11:43 Pulse 74 03/06/25 11:43 BP 128/88 03/06/25 11:43 Pulse Ox 97 03/06/25 11:43 Oxygen Delivery Method Room Air 03/06/25 11:43 BMI result Body Mass Index 27.2 Tobacco/Smoking Status: Tobacco use Status Tobacco use date assessed 09/26/24 03/06/25 11:46 Patient Tobacco Use Status Current everyday Tobacco 03/06/25 11:46 e-Cigarette/Vaping Use Never Used 03/06/25 11:46 Are you ready to quit: No Tobacco cessation counseling provided: Yes Items discussed: Nicotine replacement Relapse Prevention: discussed the importance of a supportive environment, discussed negative mood or depression after quitting, weight gain after smoking is common and discussed dietary, exercise and/or lifestyle changes Number of minutes spent counselin CPT code: 26172 - 4-10 Minutes PHQ-9: PHQ-9 Score PHQ-9: Total score 0 03/06/25 11:46 Depression Screening Interpretation: Negative Thrive Assessment: Date of Thrive Assessment Date Thrive assessed 01/08/25 03/06/25 11:46 Currently or been in a relationship where the following occur: No concerns reported Const General: healthy appearing, no acute distress, alert and awake Nutritional Appearance: well nourished Orientation/consciousness: oriented to person, oriented to place and oriented to time HENMT Ears: TM's normal bilaterally General nose exam: Normal nasal mucous membranes and turbinates present Eyes Conjunctivae: conjunctivae normal Sclerae: sclerae normal Pupils: Equal, round and reactive pupils present Neck Neck: Yes no lymphadenopathy and Yes no JVD Thyroid: Thyroid normal Carotids: no bruits Resp Effort & Inspection: normal respiratory effort and not tachypneic Auscultation: no crackles, no rales, no rhonchi and no wheezes Cardio Rate: regular rate Rhythm: regular rhythm Heart sounds: no murmurs and normal S1 and S2 GI Palpation (GI): Soft to palpation, nontender, no hepatomegaly and no splenomegaly Auscultation: normal bowel sounds Skin General skin exam: no rashes or lesions noted and dry skin Neuro General: oriented to person, oriented to place and oriented to time Cranial nerves: Yes Equal, round and reactive pupils present Speech: No Abnormal speech present Gait exam (Neuro): Normal gait present Motor exam (neuro): no tremor noted Extrem Right upper extremity: full ROM Left upper extremity: full ROM Right lower extremity: full ROM; no edema Left lower extremity: full ROM; no edema Psych Mental Status: mental status grossly normal Speech and movement: Normal speech and movement present Affect: normal affect Attitude: cooperative Thought process: Normal thought process present Coding Level of Care Code Est Pt Level 4 (57218) Diagnoses Tobacco dependence F17.200 Stress fracture, left tibia, initial encounter for fracture M84.362A Elevated liver enzymes R74.8 Additional Codes Vital Signs *Quality* - CPT code: 98167 - 4-10 Minutes ([id number]) PHQ-9 - 76813 - PHQ-9 Billing: Yes ([id number]) Assessment & Plan Assessment & Plan (1) Tobacco dependence: Code(s): F17.200 - Nicotine dependence, unspecified, uncomplicated Category: Medical Plan: As per HPI. Edward does understand he needs to quit smoking though is not willing to do so at this time. (2) Stress fracture, left tibia, initial encounter for fracture: Code(s): M84.362A - Stress fracture, left tibia, initial encounter for fracture Category: Medical Plan: Patient followed up with Orthopedics for his tibial stress fracture and was recommended to do physical therapy. Has been taking it easy and has been off of work in his knee pain has been much better. (3) Elevated liver enzymes: Code(s): R74.8 - Abnormal levels of other serum enzymes Category: Medical Plan: Noted slightly elevated ALT on most recent labs. Will recheck his liver enzymes in near future. Advised on reducing alcohol and maintaining good eating habits. Will consider an abdominal ultrasound evaluate liver
[2025-03-06 11:43] VITALS: BP 128/88; PULSE 74; TEMP 36.3; O2SAT 97; BMI 27.2
--- OUTSIDE RECORDS SUMMARY | 2025-03-06 12:01 | XMS_ITS | Encounter Summary ---
Author Organization [facility] Address [address] [place] [address] Phone Care Team Providers Care Primary Care Nurse Name Role Phone Didier Herrera Primary Care Provider Encounter Details Date Type Department Care Team (Late st Contact Info) Description 06/01/2017 Conversion Encounter [facility] [place] [address] [place] [address] Social History Tobacco Use Types Packs/Day Years [...] on filedocumented in this encounter Care Teams Primary Care Nurse Relationship Specialty Start Date End Date Didier Herrera [address] [place] [address] PCP - General 05/26/17 documented as of this encounter
--- OUTSIDE RECORDS SUMMARY | 2025-03-06 12:01 | XMS_ITS | Clinical Summary ---
Author Organization [facility] Address [address] [place] [address] Phone Care Team Providers Care Electrode Cleaner Name Role Phone HerreraDidier cleaning Primary Care Provider [phone] Immunizations Immunization Administration Dates Next Due DTP [...] of Asthma, No family history of Sudden /IA under age 55, No family history of [...] age to complete this topic Care Teams Electrode Cleaner Relationship Specialty Start Date End Date Ddiier Herrera [address] [place] [address] PCP - General 05/26/17
== END 2025-03-06 12:15 | disposition home or self-care (01) ==
LOC: HO.HMCH 11:22
PROVIDERS: PCP Physician Assistant; Visit Provider Physician Assistant
DX: F17.200 Nicotine dependence, unspecified, uncomplicated (principal); M84.362A Stress fracture, left tibia, initial encounter for fracture; R74.8 Abnormal levels of other serum enzymes

== ENCOUNTER → 2025-03-06 11:21 | Outpatient (BNVA) | payer OTHER, SELFPAY | PROVIDERS: PCP Physician Assistant; Visit Provider Physician Assistant | DX: M84.362D Stress fracture, left tibia, subsequent encounter for fracture with routine healing (principal); S83.512D Sprain of anterior cruciate ligament of left knee, subsequent encounter; F17.210 Nicotine dependence, cigarettes, uncomplicated; X58.XXXD Exposure to other specified factors, subsequent encounter | CPT/HCPCS: 96127 ==

== ENCOUNTER 2025-03-28 07:59 | Outpatient (REF) | payer OTHER, SELFPAY ==
--- NOTE | ~2025-03-28 | XR_ITS ---
EXAMINATION: XR TIBIA AND FIBULA, LEFT CLINICAL INFORMATION: Stress fracture, left tibia. COMPARISON: None available. TECHNIQUE: AP and lateral views of the left tibia and fibula were obtained. FINDINGS: The bones and soft tissues are normal. No fracture. No evidence of stress fracture. No periostitis. No osseous lesions. XR/XR tibia fibula LT 2V IMPRESSION: Normal left tibia and fibula. Definite evidence of stress fracture. Electronically signed by: Alex Luna MD 03/28/2025 01:06 PM EDT
--- OUTSIDE RECORDS SUMMARY | 2025-03-29 08:01 | XMS_ITS | Encounter Summary ---
Author Organization [facility] Address [address] [place] [address] Phone Care Team Providers Care Rn Psych Name Role Phone Didier Herrera Primary Care Provider [phone] Encounter Details Date Type Department Care Team (Late st Contact Info) Description 06/01/2017 Conversion Encounter [place] [facility] [place] [address] [place] [address] Social History Tobacco Use Types Packs/Day Years [...] on filedocumented in this encounter Care Teams Rn Psych Relationship Specialty Start Date End Date Didier Herrera [address] [place] [address] PCP - General 05/26/17 documented as of this encounter
== END 2025-03-28 08:00 | disposition home or self-care (01) ==
LOC: HO.HOSX 07:59
PROVIDERS: Visit Provider Physician Assistant
DX: M84.362A Stress fracture, left tibia, initial encounter for fracture (principal)
CPT/HCPCS: 73590

== ENCOUNTER 2025-03-28 11:22 | Outpatient (AMB) | payer OTHER, SELFPAY ==
[2025-03-28 11:45] VITALS: BMI 27.2
--- NOTE | 2025-03-28 11:45 | MHC.OFFVIS ---
Vital Signs 03/28/25 11:45 Height 6 ft 1 in Weight 206 lb BMI 27.2 Intake Visit Reasons: OV- Left tibia stress fx DOI 01/04/25 Intake Note: Edward is a 34 year old male who presents today for evaluation of his Left tibia stress fx DOI 01/04/25. At his last visit he was recommended to not weight bear. Patient reports he has now been weight bearing for a few weeks with occasional discomfort. Patient states he takes Tylenol PRN with relief. Allergies No Known Allergies Allergy (Verified 03/28/25 11:45) HPI HPI OV- Left tibia stress fx DOI 01/04/25: Details: Mr. Luisa garcia is a 35-year-old male who presents to the office today for routine follow-up of left tibial stress fracture. Date of injury was 01/04/2025. Patient reports that overall he is doing very well. He has noticed a decrease in his pain. PFSH Family History Maternal Grandfather Pancreatic cancer Social History Housing: House Alcohol intake: current Alcohol intake frequency: a few times a week Alcohol type: beer Patient Tobacco Use Status: Current everyday Tobacco user Cigarettes Per Day: 10 e-Cigarette/Vaping Use: Never Used service: No Current occupational status: employed Current occupation: [employer] Cognitive needs: No Hearing needs: No Vision needs: No Review of Systems Const All systems reviewed & are unremarkable except as noted in HPI and below Physical Exam Vital Signs: BMI result Body Mass Index 27.2 Const General: cooperative, healthy appearing and no acute distress Resp Effort & Inspection: normal respiratory effort and able to speak in complete sentences Extrem Other: Left knee normal to inspection no ecchymosis, erythema or joint effusion. No tenderness to palpation over the proximal tibia. Able to perform straight leg raise. No tenderness to palpation medial or lateral joint lines. NVI. Assessment & Plan Assessment & Plan (1) Stress fracture of left tibia: Code(s): M84.362A - Stress fracture, left tibia, initial encounter for fracture Category: Medical Plan Mr. Luisa garcia is a 35-year-old male who presents to the office today for routine follow-up of left tibial stress fracture. Date of injury was 01/04/2025. Patient reports that overall he is doing very well. He has noticed a decrease in his pain. While in the office today, we discussed the nature of the injury taking roughly 3 months to improve. Patient is just about at this three-month momo. I have encouraged the patient to gently return back to normal activities using pain as his guide. Should he have any increase in pain he should contact our office immediately and limit his weight-bearing status. Patient understands and accepts. He will follow up PRN, sooner if needed. X-rays of the tibia and fibula which were obtained while in the office today were reviewed by me, Shante Torres PA-C and reveal normal left tibia and fibula. No evidence of stress fracture. Orders: Orders XR tibia fibula LT 2V 03/28/25 M84.362A - Stress fracture, left tibia, initial encounter for fracture Coding Level of Care Code Est Pt Level 3 (45222) Diagnoses Stress fracture of left tibia M84.362A
--- OUTSIDE RECORDS SUMMARY | 2025-03-28 12:21 | XMS_ITS | Clinical Summary ---
Author Organization [facility] Address [address] [place] [address] Care Team Providers Care Desktop Support Specialist Name Role Phone Unavailable Primary Care Provider [...] ( - 2023-2 5 season) 2024 Influenza (Season Ended) 2025 09/24/2008 Zoster (Shingrix) (1 of 2) 2042 [...]
== END 2025-03-28 12:02 | disposition home or self-care (01) ==
LOC: HO.HOS 11:23
PROVIDERS: PCP Physician Assistant; Visit Provider Physician Assistant
DX: M84.362A Stress fracture, left tibia, initial encounter for fracture (principal)
CPT/HCPCS: 99213

== ENCOUNTER → 2025-03-28 11:31 | Outpatient (BNV) | payer OTHER, SELFPAY | PROVIDERS: Visit Provider Radiology Diagnostic Radiology | DX: M79.662 Pain in left lower leg (principal) | CPT/HCPCS: 73590 ==

== ENCOUNTER 2025-03-28 12:48 | Outpatient (RCR) | payer OTHER, SELFPAY ==
--- NOTE | 2025-02-21 12:30 | MHC.PT.EP ---
[facility] [place] Office [place] Office [place] Office [address] [phone] F: [phone] F: [phone] F: [phone] F: [phone] Physical Therapy Plan of Care Date of Evaluation: 02/21/25 Date of Surgery: Diagnosis: MCL knee sprain (MD Dx) Fracture line in the proximal tibial metaphysis of the medial/posterior aspect (PT Dx) RS Assessment: Edward is a pleasant, motivated 34 y.o. male who is referred to PT by Santo Lacey PA-C with Dx of MCL knee sprain. PT Dx is fracture line in the proximal tibial metaphysis of the medial/posterior aspect. He has seen [facility] and was given no WB restrictions. Patient impairments include pain, weakness in L knee and hip, antalgic gait. 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 Patient will benefit from skilled PT to address aforementioned impairments and functional limitations to meet established goals. Frequency and Duration: The patient will be seen 2x/week for 4 weeks Short Term Goals: 2 weeks Patient demonstrates consistency and independence with HEP to self manage symptoms. Concrete Mixer Loader Truck Mounted Goals: 4 weeks Patient presents with increased L knee flexion strength 5/5 to be able to descend stairs reciprocally without sxs. 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 Treatment Plan: Modalities to reduce pain, spasms and effusion. Manual therapy to restore motion and function. Therapeutic exercise to improve strength and flexibility. Neuromuscular re-education for posture and balance. Therapeutic activities to return to functional activities of daily living. Electronically signed by: Kristy Perry, PT, DPT Please sign and return to therapist. Thank you for your referral.
--- NOTE | 2025-04-01 14:53 | MHC.PT.DC ---
[facility] [place] Office [place] Office [place] Office [address] [facility] [phone] F: [phone] F: [phone] F: [phone] F: [phone] Physical Therapy Discharge Report Diagnosis: LEFT MCL knee sprain (MD Dx) LEFT Fracture line in the proximal tibial metaphysis of the medial/posterior aspect (PT Dx) RS Date of Surgery: Date of Evaluation: 02/21/25 Date of Discharge: 04/01/25 Treatments to Date: 9 Cancellations to Date: No Shows to Date: Discharge Status: Achieved Goals Improved Function Independent with HEP Discharge Summary: Edward presents with full strength in L knee and ankle and full AROM. He has been able to tolerate increased balance and functional strengthening in WBing positions without it causing any symptoms. He is appropriate for discharge from PT at this time. Electronically signed by: Kristy Perry PT, DPT Please sign and return to therapist. Thank you for your referral.
== END 2025-04-01 14:54 | disposition home or self-care (01) ==
LOC: HO.PT 12:48
PROVIDERS: PCP Physician Assistant; Visit Provider Physician Assistant
DX: S83.412D Sprain of medial collateral ligament of left knee, subsequent encounter (principal)
CPT/HCPCS: 97110; 97112; 97140; 97161; 97530

== ENCOUNTER 2025-08-15 08:49 | Outpatient (REF) | payer OTHER, SELFPAY ==
--- OUTSIDE RECORDS SUMMARY | 2025-08-15 09:15 | XMS_ITS | Clinical Summary ---
Author Organization [facility] Address [address] [place] [address] Phone Care Team Providers Care Log Deckman Name Role Phone HerreraDidier cleaning Primary Care Provider [phone] Immunizations Immunization Administration Dates Next Due DTP [...] of Asthma, No family history of Sudden /VT under age 55, No family history of [...] 09/24/2018 09/24/2008, 03/01/2004, 04/15/1997, Additional history exists HPV Vaccines (1 - 3-dose SCDM series) 2019 Influenza Vaccines (#1) 2025 09/24/2008 COVID-19 Vaccine ( season) 2025 HIB Vaccines Completed 06/15/1993, 11/16, 1992, Additional [...] age to complete this topic Care Teams Log Deckman Relationship Specialty Start Date End Date Didier Herrera [address] [place] [address] PCP - General 05/26/17
--- OUTSIDE RECORDS SUMMARY | 2025-08-15 09:15 | XMS_ITS | Encounter Summary ---
Author Organization [facility] Address [address] [place] [address] Phone Care Team Providers Care Customer Sales Consultant Name Role Phone Didier Herrera Primary Care Provider [phone] Encounter Details Date Type Department Care Team (Late st Contact Info) Description 06/01/2017 Conversion Encounter [place] [facility] [place] [address] [place] [address] Social History Tobacco Use Types Packs/Day Years [...] on filedocumented in this encounter Care Teams Customer Sales Consultant Relationship Specialty Start Date End Date Didier Herrera [address] [place] [address] PCP - General 05/26/17 documented as of this encounter
--- OUTSIDE RECORDS SUMMARY | 2025-08-15 09:15 | XMS_ITS | Clinical Summary ---
Author Organization [facility] Address [address] [place] [address] Care Team Providers Care Physician Office Secretary Name Role Phone Unavailable Primary Care Provider [...] 3-dose series) 2011 COVID-19 Vaccine ( - 2024-2 6 season) 2025 Influenza (#1) 2025 09/24/2008 Zoster (Shingrix) (1 of 2) 2042 HPV Vaccine (No Doses Required) Completed Hep A Aged Out No longer eligi [...]
[2025-08-15 10:08] LABS: Alanine Aminotransferase 59 U/L (0-40); Albumin Level 4.8 g/dL (3.5-5.0); Alkaline Phosphatase 75 U/L (39-117); Aspartate Amino Transferase 24 U/L (5-37); Total Protein 6.8 g/dL (6.5-8.0)
== END 2025-08-15 08:50 | disposition home or self-care (01) ==
LOC: HO.LAB 08:49
PROVIDERS: PCP Physician Assistant; Visit Provider Physician Assistant
DX: R74.8 Abnormal levels of other serum enzymes (principal)
CPT/HCPCS: 36415; 80076

== ENCOUNTER 2025-09-08 10:10 | Outpatient (AMB) | payer OTHER, SELFPAY ==
--- NOTE | 2025-09-08 10:37 | A.OFFPC_ITS ---
Vital Signs 09/08/25 10:38 Height 6 ft 1 in Weight 194 lb 2 oz BMI 25.6 BP 130/70 Blood Pressure Location Lt brachial Position Sitting Pulse 91 Pulse Source Pulse Oximeter Temp 97.3 F Temp Source Temporal Artery Scan Pulse Oximetry (%) 97 Oxygen Delivery Method Room Air Intake Visit Reasons: Annual exam Intake Note: Patient is here today for a physical. Second Grade Teacher Required: No Senior Pharmacy Technician: Not Required per policy Accompanied by: Self / Same As Patient Allergies No Known Allergies Allergy (Verified 09/08/25 10:48) Medication List - Last Reconciled 09/08/25 by Santo Lacey PA-C No Known Home Meds Tobacco use date assessed: 09/08/25 Dental Screening Dental Screen Date: 09/08/25 Did you have a dental visit in the last 12 months?: Yes Did you have a dental problem in the last 6 months where you did not have access to dental care?: No Was dental information given to patient?: Patient has dentist HPI Annual exam HPI Details Patient is a 35-year-old male here today for an annual physical. Patient has a past medical history significant for tobacco dependency, elevated liver enzyme. Please to announce that he is expecting a new baby in 2025. Tobacco dependency: He does admit to smoking a half pack of cigarettes per day and does understand he needs to quit. He is interested now in try nicotine patches. Elevated liver enzymes-had an elevated ALT on most recent labs. His liver enzymes have gotten better since he has reduced his alcohol intake and has been trying to lose weight. Vaccines: Up-to-date with COVID vaccine, up-to-date with flu vaccine. Needs tdap PFSH Surgical History History of elbow surgery Family History Maternal Grandfather Pancreatic cancer Other Substance use disorder Social History Housing: House Alcohol intake: current Alcohol intake frequency: a few times a week Alcohol type: beer Patient Tobacco Use Status: Current everyday Tobacco user Tobacco use type: Cigarette Cigarette Packs Per Day: 0.5 Cigarettes Per Day: 10 e-Cigarette/Vaping Use: Never Used Second Hand Smoke Exposure: Yes service: No Current occupational status: employed Current occupation: [employer] Cognitive needs: No Hearing needs: No Vision needs: No Questionnaire Thrive Questionnaire Date Thrive assessed: 02/28/25 I am a: Patient What is your living situation today?: I have a steady place to live Within the past 12 months, did the food you bought not last and you didn't have the money to get more?: Never true Within the past 12 months, did you worry whether your food would run out before you got money to buy more?: Never true Do you have trouble paying for medicines?: No Do you have trouble getting transportation to medical appointments?: No Do you have trouble paying your heating and electricity bill?: No Do you have trouble taking care of your child, family member or friend?: No Do you have trouble with day-to-day activities such as bathing, preparing meals, shopping, managing finances, etc.?: No Are you currently unemployed and looking for a job?: No Are you interested in more education?: Yes Please select the resources that you would like help with: None Currently or been in a relationship where the following occur: No concerns reported THRIVE Score: 0 KAVYA-7 AMB Questionnaire KAVYA-7 Date KAVYA - 7 assessed: 01/08/25 Source: Developed by Drs. Didier Tam, Geeta Carbajal, Junior Da Silva and colleagues, with an educational russel from [employer]. Review of Systems Const Denies body aches, Denies chills, Denies excessive sweating, Denies fatigue, Denies fever(s) and Denies headache(s) Eyes Denies blurry vision ENT Denies dysphagia, Denies vertigo, Denies dizziness, Denies headache(s), Denies hearing loss and Denies tinnitus Card Denies chest pain, Denies chest pain with activity, Denies syncope, Denies irregular heart rhythm and Denies dyspnea Resp Denies chest congestion, Denies cough, Denies hemoptysis, Denies dyspnea and Denies wheezing GI Denies abdominal pain, Denies melena, Denies hematochezia, Denies coffee ground emesis, Denies dysphagia, Denies diarrhea, Denies nausea and Denies vomiting Denies difficulty urinating, Denies dysuria, Denies urinary frequency, Denies urinary hesitancy and Denies urinary urgency Musc Denies arthralgias, Denies limited range of motion, Denies muscle cramps and Denies muscle weakness Skin/Breast Denies rash and Denies skin ulcer Neuro Denies Abnormal speech present, Denies confusion, Denies vertigo, Denies dizziness, Denies syncope, Denies headache(s), Denies memory loss and Denies seizure-like activity Psych Denies anxiety, Denies confusion, Denies depression, Denies memory loss, Denies panic attacks and Denies paranoia Endo Denies excessive sweating, Denies fatigue, Denies flushing, Denies polydipsia and Denies polyuria Aller/Immun Denies wheezing Physical exam (Primary Care) Vital Signs: Last Vital Signs Temp 97.3 F 09/08/25 10:38 Pulse 91 09/08/25 10:38 BP 130/70 09/08/25 10:38 Pulse Ox 97 09/08/25 10:38 Oxygen Delivery Method Room Air 09/08/25 10:38 BMI result Body Mass Index 25.6 Tobacco/Smoking Status: Tobacco use Status Tobacco use date assessed 09/08/25 09/08/25 10:41 Patient Tobacco Use Status Current everyday Tobacco 09/08/25 10:52 Tobacco use type Cigarette 09/08/25 10:52 e-Cigarette/Vaping Use Never Used 09/08/25 10:52 Thrive Assessment: Date of Thrive Assessment Date Thrive assessed 02/28/25 09/08/25 10:41 Currently or been in a relationship where the following occur: No concerns reported Const General: cooperative, comfortable, no acute distress, alert and awake; No confusion Orientation/consciousness: oriented to person, oriented to place, patient oriented x3 and No confusion HENMT Head: Yes normocephalic Ears: external ears normal and TM's normal bilaterally Face and sinus: No sinus tenderness Mouth: Normal oral and palatal mucosa present and tongue normal Teeth and gingiva: dentition normal and gingiva normal Throat: Yes posterior oropharynx normal, Yes tonsils normal and Yes uvula midline Eyes Conjunctivae: conjunctivae normal Sclerae: sclerae normal Pupils: Equal, round and reactive pupils present EOM: EOMs intact bilaterally Direct Ophthalmoscopy: No no photophobia Neck Neck: Yes no lymphadenopathy, No tender and Yes no JVD Thyroid: Thyroid normal Carotids: no bruits Chest Chest palpation & inspection: no tenderness Resp Effort & Inspection: normal respiratory effort, no audible wheezes, not labored and no stridor Auscultation: no crackles, no rales, no rhonchi and no wheezes Cardio Jugular venous distension: no JVD Rate: regular rate, not bradycardic and not tachycardic Rhythm: regular rhythm Bruits: no carotid bruits Peripheral pulses: Peripheral pulses 2+ throughout GI Inspection: Yes normal to inspection, No abdominal wall ecchymosis and No visible herniation Palpation (GI): Soft to palpation, nontender, no guarding, not rigid and No hepatosplenomegaly present Auscultation: normoactive bowel sounds General: Yes no CVA tenderness Back/Spine/Pelvis Back: no CVA tenderness and No back tenderness Cervical Spine: cervical ROM normal Thoracic/Lumbar Spine: thoracic and lumbar spine normal to inspection, straight leg raise negative bilaterally, No thoraco-lumbar ROM limited and No lumbar spinal tenderness Skin Lesions: no lesions Rashes: no rashes Wounds: no wounds Neuro General: oriented to person, oriented to place, patient oriented x3, CN's II-XI intact bilaterally and No confusion Cranial nerves: Yes Equal, round and reactive pupils present and Yes Normal accommodation reflex present Cognition (Neuro): normal cognition Speech: No Abnormal speech present Gait exam (Neuro): Normal gait present Motor exam (neuro): 5/5 motor strength present throughout Extrem Right upper extremity: full ROM; no cyanosis Left upper extremity: full ROM; no cyanosis Right lower extremity: no edema Left lower extremity: no edema Psych Appearance: grossly normal Mental Status: mental status grossly normal Affect: normal affect Attitude: cooperative Thought process: Normal thought process present Immunizations Boostrix Tdap 2.5 Lf unit-8 mcg-5 Lf/0.5 mL intramuscular syringe Performing Provider: Santo Lacey PA-C Per[facility] [place] [facility] Administered by: Ijeoma Shine RN on 09/08/25 11:13 Dose Route Admin Location Dispensed Lot Number Expiration Date [facility] Diesel Trailer Mechanic 0.5 mL IM Right Deltoid 0.5 mL [id number] 03/27/28 [id number] [employer] Total Dispensed Waste 0.5 mL 0 % VIS Given Date VIS Provided VIS Publication Date 09/08/25 Single Vaccine 21 Eligibility Eligibility Date Funding Source Not [facility] Eligible 09/08/25 Private Coding Level of Care Code Est Pt Prev Care 18-39y(69522) Diagnoses Annual physical exam Z00.00 Tobacco dependence F17.200 Elevated liver enzymes R74.8 Assessment & Plan Assessment & Plan (1) Annual physical exam: Code(s): Z00.00 - Encounter for general adult medical examination without abnormal findings Category: Medical Plan: As per HPI (2) Tobacco dependence: Code(s): F17.200 - Nicotine dependence, unspecified, uncomplicated Category: Medical Plan: Patient does understand he needs to quit smoking, has some motivation now to quit. He is willing to try nicotine patches (3) Elevated liver enzymes: Code(s): R74.8 - Abnormal levels of other serum enzymes Category: Medical Plan: Noted elevated ALT though has gotten better since he has reduced his alcohol intake. He has been trying to lose weight as well. Will continue to follow liver enzymes. Orders: Orders TDaP Immunization Today F17.200 - Nicotine dependence, unspecified, uncomplicated, Z23 - Encounter for immunization Complete Blood Count no Diff Today Z13.1 - Encounter for screening for diabetes mellitus Comprehensive [place]. Panel Fast Today Z13.1 - Encounter for screening for diabetes mellitus Medications: New nicotine 1 patch transdermal DAILY 14 ea 0RF 14 days F17.200 - Nicotine dependence, unspecified, uncomplicated nicotine 1 patch transdermal Q24H 14 ea 0RF 14 days F17.200 - Nicotine dependence, unspecified, uncomplicated
[2025-09-08 10:38] VITALS: BP 130/70; PULSE 91; TEMP 36.3; O2SAT 97; BMI 25.6
--- OUTSIDE RECORDS SUMMARY | 2025-09-08 12:22 | XMS_ITS | Encounter Summary ---
Author Organization [facility] Address [address] [place] [address] Phone Care Team Providers Care Building Tech Name Role Phone Didier Herrera Primary Care Provider [phone] Encounter Details Date Type Department Care Team (Late st Contact Info) Description 06/01/2017 Conversion Encounter [facility] [address] [place] [address] Social History Tobacco Use Types Packs/Day Years [...] on filedocumented in this encounter Care Teams Building Tech Relationship Specialty Start Date End Date Didier Herrera [address] [place] [address] PCP - General 05/26/17 documented as of this encounter
--- OUTSIDE RECORDS SUMMARY | 2025-09-08 12:22 | XMS_ITS | Clinical Summary ---
Author Organization [facility] Address [address] [place] [address] Phone Care Team Providers Care Quilt Maker Name Role Phone HerreraDidier cleaning Primary Care Provider [phone] Immunizations Immunization Administration Dates Next Due DTP [...] of Asthma, No family history of Sudden /AK under age 55, No family history of [...] age to complete this topic Care Teams Quilt Maker Relationship Specialty Start Date End Date Didier Herrera [address] [place] [address] PCP - General 05/26/17
--- OUTSIDE RECORDS SUMMARY | 2025-09-08 12:22 | XMS_ITS | Clinical Summary ---
Author Organization [facility] Address [address] [place] [address] Care Team Providers Care Supervisor Photocomposition Name Role Phone Unavailable Primary Care Provider [...]
== END 2025-09-08 11:15 | disposition home or self-care (01) ==
LOC: HO.HMCH 10:11
PROVIDERS: PCP Physician Assistant; Visit Provider Physician Assistant
DX: Z00.00 Encounter for general adult medical examination without abnormal findings (principal); F17.200 Nicotine dependence, unspecified, uncomplicated; R74.8 Abnormal levels of other serum enzymes; Z23 Encounter for immunization

== ENCOUNTER → 2025-09-08 10:10 | Outpatient (BNVA) | payer OTHER, SELFPAY | PROVIDERS: PCP Physician Assistant; Visit Provider Physician Assistant | DX: Z00.00 Encounter for general adult medical examination without abnormal findings (principal); R74.8 Abnormal levels of other serum enzymes; F17.210 Nicotine dependence, cigarettes, uncomplicated; Z23 Encounter for immunization | CPT/HCPCS: 90471; 90715 ==

== ENCOUNTER 2025-10-02 13:56 | Outpatient (AMB) | payer OTHER, SELFPAY ==
--- NOTE | 2025-10-02 14:08 | A.OFFPC_ITS ---
Vital Signs 10/02/25 14:10 Height 6 ft 1 in Weight 203 lb 4 oz BMI 26.8 BP 142/92 H Blood Pressure Location Lt brachial Position Sitting Pulse 112 H Pulse Source Pulse Oximeter Temp 97.7 F Temp Source Temporal Artery Scan Pulse Oximetry (%) 97 Oxygen Delivery Method Room Air Intake Visit Reasons: Anxiety follow-up Intake Note: Patient is here to follow up on Anxiety. Logistics Vice President Required: No Material Flow Analyst: Not Required per policy Accompanied by: Self / Same As Patient Allergies No Known Allergies Allergy (Verified 10/02/25 14:10) Medication List - Last Reconciled 10/02/25 by Kenya Barclay MD citalopram (Celexa) 10 mg PO DAILY 30 days nicotine 1 patch transdermal DAILY 14 days nicotine 1 patch transdermal Q24H 14 days Tobacco use date assessed: 10/02/25 Dental Screening Dental Screen Date: 09/08/25 HPI HPI Comments History of Present Illness Details The patient is a 35 year old male presenting for a follow-up visit for anxiety. He reports experiencing anxiety related to stress from his mother's diabetes and the expectation of a new baby in February. Following a visit in August, the patient messaged his provider through the patient portal around September 22 due to ongoing anxiety and was started on Citalopram last Monday, which he has been tolerating well. He describes feeling overwhelmed with a constantly racing mind but denies any thoughts of self-harm. He received a referral for counseling services and has completed the intake process, with an expectation to be contacted soon. Additionally, he has had one session with a work-provided counselor. [facility], [facility] Surgical History History of elbow surgery Family History Maternal Grandfather Pancreatic cancer Other Substance use disorder Social History Housing: House Alcohol intake: current Alcohol intake frequency: a few times a week Alcohol type: beer Patient Tobacco Use Status: Current everyday Tobacco user Tobacco use type: Cigarette Cigarette Packs Per Day: 0.5 Cigarettes Per Day: 10 e-Cigarette/Vaping Use: Never Used Second Hand Smoke Exposure: Yes service: No Current occupational status: employed Current occupation: [employer] Cognitive needs: No Hearing needs: No Vision needs: No Questionnaire PHQ-9 Over the last 2 weeks, how often have you been bothered by any of the following problems? 1. Little interest or pleasure in doing things: several days 2. Feeling down, depressed, or hopeless: several days 3. Trouble falling or staying asleep, or sleeping too much: several days 4. Feeling tired or having little energy: several days 5. Poor appetite or overeating: several days 6. Feeling bad about yourself - or that you are a failure or have let yourself or your family down: several days 7. Trouble concentrating on things, such as reading the newspaper or watching television: several days 8. Moving or speaking so slowly that other people could have noticed. Or the opposite - being so fidgety or restless that you have been moving around a lot more than usual: not at all 9. Thoughts that you would be better off or of hurting yourself in some way: not at all Total score: 7 Depression Screening Interpretation: Positive Depression Screening Done: Yes Source: Developed by Drs. Didier Tam, Geeta Carbajal, Junior Da Silva and colleagues, with an educational russel from [employer]. Thrive Questionnaire Date Thrive assessed: 02/28/25 I am a: Patient What is your living situation today?: I have a steady place to live Within the past 12 months, did the food you bought not last and you didn't have the money to get more?: Never true Within the past 12 months, did you worry whether your food would run out before you got money to buy more?: Never true Do you have trouble paying for medicines?: No Do you have trouble getting transportation to medical appointments?: No Do you have trouble paying your heating and electricity bill?: No Do you have trouble taking care of your child, family member or friend?: No Do you have trouble with day-to-day activities such as bathing, preparing meals, shopping, managing finances, etc.?: No Are you currently unemployed and looking for a job?: No Are you interested in more education?: Yes Please select the resources that you would like help with: None Currently or been in a relationship where the following occur: No concerns reported THRIVE Score: 0 KAVYA-7 AMB Questionnaire KAVYA-7 Date KAVYA - 7 assessed: 10/02/25 Feeling nervous, anxious, or on edge: 1 = Several days Not being able to stop or control worryin = Nearly every day Worrying too much about different things: 3 = Nearly every day Trouble relaxin = Nearly every day Being so restless that it is hard to sit still: 3 = Nearly every day Becoming easily annoyed or irritable: 1 = Several days Feeling afraid as if something awful might happen: 0 = Not at all Total KAVYA-7 score (0-4 normal; 5-9 mild; 10-14 moderate; 15-21 severe): 14 Source: Developed by Drs. Didier Tam, Geeta Carbajal, Junior Da Silva and colleagues, with an educational russel from [employer]. Physical exam (Primary Care) Vital Signs: Last Vital Signs Temp 97.7 F 10/02/25 14:10 Pulse 112 H 10/02/25 14:10 BP 142/92 H 10/02/25 14:10 Pulse Ox 97 10/02/25 14:10 Oxygen Delivery Method Room Air 10/02/25 14:10 BMI result Body Mass Index 26.8 Tobacco/Smoking Status: Tobacco use Status Tobacco use date assessed 10/02/25 10/02/25 14:17 Patient Tobacco Use Status Current everyday Tobacco 10/02/25 14:17 Tobacco use type Cigarette 10/02/25 14:17 e-Cigarette/Vaping Use Never Used 10/02/25 14:17 PHQ-9: PHQ-9 Score PHQ-9: Total score 7 10/02/25 16:08 Depression Screening Interpretation: Positive Thrive Assessment: Date of Thrive Assessment Date Thrive assessed 02/28/25 10/02/25 14:17 Currently or been in a relationship where the following occur: No concerns reported Coding Level of Care Code Est Pt Level 3 ([id number]) Diagnoses KAVYA (generalized anxiety disorder) F41.1 Time Spent (min) 20 Assessment & Plan Assessment & Plan (1) KAVYA (generalized anxiety disorder): Code(s): F41.1 - Generalized anxiety disorder Category: Medical Plan: - The patient is experiencing anxiety and feelings of being overwhelmed, which he relates to stressors including his mother's health and expecting a new baby. - He recently started a new medication Citalopram 10 mg for anxiety and denies any suicidal ideation. - Continue the current medication as prescribed, with the understanding that it may take a couple of weeks for the full effects to be felt. - The patient will proceed with counseling services, for which he has already completed the intake process, and has also utilized a work-provided counselor. - He was advised to seek immediate help if his anxiety becomes uncontrollable. - Work-related paperwork needs to be completed by the . - Follow-up is scheduled in two months. Plan I met with the patient for a follow-up on his anxiety. We discussed that his anxiety is related to significant life stressors, including his mother's health and an expected new baby. I advised him to continue the medication Citalopram 10 mg which he started about a week ago, explaining that it can take a couple of weeks to feel the full therapeutic effect. I encouraged him to continue pursuing counseling, noting that he has already completed the intake process with a service and had one session with a work counselor. I explained that anxiety can fluctuate and advised him to call or have someone with him if his symptoms become uncontrollable. He confirmed he has no thoughts of self-harm. We also addressed the need for work-related paperwork to be completed by the and recommended he call the clinic if his primary provider is not back by then. A follow-up appointment was scheduled in two months.
[2025-10-02 14:10] VITALS: BP 142/92; PULSE 112; TEMP 36.5; O2SAT 97; BMI 26.8
--- OUTSIDE RECORDS SUMMARY | 2025-10-02 18:14 | XMS_ITS | Encounter Summary ---
Author Organization [facility] Address [address] [place] [address] Phone Care Team Providers Care Plastic Battery Assembler Name Role Phone Didier Herrera Primary Care Provider [phone] Encounter Details Date Type Department Care Team (Late st Contact Info) Description 06/01/2017 Conversion Encounter [place] [facility] [place] [address] [place] [address] Social History Tobacco Use Types Packs/Day Years [...] on filedocumented in this encounter Care Teams Plastic Battery Assembler Relationship Specialty Start Date End Date Didier Herrera [address] [place] [address] PCP - General 05/26/17 documented as of this encounter
--- OUTSIDE RECORDS SUMMARY | 2025-10-02 18:14 | XMS_ITS | Clinical Summary ---
Author Organization [facility] Address [address] [place] [address] Care Team Providers Care Hand Cooper Helper Name Role Phone Unavailable Primary Care Provider [...]
--- OUTSIDE RECORDS SUMMARY | 2025-10-02 18:14 | XMS_ITS | Clinical Summary ---
Author Organization [facility] Address [address] [place] [address] Phone Care Team Providers Care Rewinder Operator Helper Name Role Phone HerreraDidier cleaning Primary Care [...] of Asthma, No family history of Sudden /SD under age 55, No family history of [...] age to complete this topic Care Teams Rewinder Operator Helper Relationship Specialty Start Date End Date Didier Herrera [address] [place] [address] PCP - General 05/26/17
== END 2025-10-02 14:28 | disposition home or self-care (01) ==
LOC: HO.HMCH 13:57
PROVIDERS: PCP Physician Assistant; Visit Provider Internal Medicine
DX: F41.1 Generalized anxiety disorder (principal)